=== PATIENT | male | born 1945 | race Caucasian/White ===

== ENCOUNTER 2017-03-06 13:00 | Day surgery (SDC) | payer MEDICARE, OTHER ==
[~2017-03-06] VITALS: Ht 165.1 cm; Wt 73.1 kg
[~2017-03-06 13:00] MED LIST: ALBU18HF IH; AMIT10TA6 PO; BCL80INH INH; CELE200C PO; DIAZ5TAB4 PO; ESOM40CA PO; GABA300C16 PO; LORA10TA3 PO; LOSA100T7 PO; TRAM50TA2 PO
[2017-03-06 13:26] VITALS: Ht 165.1 cm; Wt 73.1 kg
[2017-03-06] MEDS ORDERED: MIRT30TA5 PO (13:50)
[2017-03-06] MEDS ORDERED: QVAR (13:50)
[2017-03-06] MEDS ORDERED: [UNRECOGNIZED DRUG - CODE] PO (13:50)
[2017-03-06] MEDS ORDERED: EYE (13:50)
[2017-03-06] MEDS ORDERED: lorazepam PO (13:50)
[2017-03-06] MEDS ORDERED: ibuprofen PO (13:50)
[2017-03-06] MEDS ORDERED: OMEP20CA16 PO (13:50)
[2017-03-06] MEDS ORDERED: hydrocodone (13:50)
[2017-03-06] MEDS ORDERED: PHEN-549 PO (13:50)
[2017-03-06 13:54] VITALS: BP 155/74; PULSE 68; RESP 17
[2017-03-06] MEDS ORDERED: PROPOFOL 20 ML ONE (14:56)
[2017-03-06 15:33] VITALS: BP 119/70; RESP 20
--- NOTE | 2017-03-06 16:18 | GILP ---
DATE OF PROCEDURE: 03/06/2017 NAME OF PROCEDURES: Esophagogastroduodenoscopy and biopsy. SURGEON: Joshua Cat MD PREOPERATIVE DIAGNOSIS: Abdominal pain. POSTOPERATIVE DIAGNOSES: 1. Bile reflux gastritis with erosions. 2. Gastric mucosal biopsies were taken for Helicobacter pylori test. INDICATION FOR THE PROCEDURE: Mr. Rafael Canas is a 72-year-old male patient who had upper abdomin al pain, not responding to therapy. The patient was scheduled for endoscopic examination for furthe r evaluation. The procedure and possible complications were well explained to the patient. He understood and cons ented to the procedure. DESCRIPTION OF PROCEDURE: Under the influence of anesthesia, the gastroscope was carefully introduc ed into the esophagus and under direct vision, it was advanced to the stomach and through the pyloru s into the duodenal bulb and descending duodenum. FINDINGS: ESOPHAGUS: The mucosa was normal. STOMACH: The patient had bile reflux gastritis with erosions. Gastric mucosal biopsies were taken for H. pylori test. DUODENUM: Normal. The patient tolerated the procedure very well and there was no complication from the procedure. At the end of the procedure, he was awake with stable vital signs and he was discharged home to the car e of his family. IMPRESSION: 1. Bile reflux gastritis with erosions. 2. Gastric mucosal biopsies were taken for Helicobacter pylori test. PLAN: 1. Continue omeprazole. 2. Add Carafate 1 g p.o. t.i.d. a.c. 3. Await H. pylori test report. Dictated By: JOSHUA ARAUJO/HENRY Conf#: [id number] DID#: [id number]
== END 2017-03-06 15:38 | disposition home or self-care (01) ==
LOC: GIL 13:00 → EDBD 15:00 → GIL 15:38
PROVIDERS: ATTEND Internal Medicine Gastroenterology
DX: K29.60 Other gastritis without bleeding (principal); I10 Essential (primary) hypertension; E78.5 Hyperlipidemia, unspecified; J45.909 Unspecified asthma, uncomplicated; F41.8 Other specified anxiety disorders
CPT/HCPCS: 87081